=== PATIENT | female | born 1990 | race Caucasian/White ===

== ENCOUNTER 2025-04-24 15:38 | Emergency (ER) | payer MEDICAID, SELFPAY ==
--- OUTSIDE RECORDS SUMMARY | 2023-05-22 02:10 | XMS_ITS | Continuity of Care Document ---
Author Organization [facility] Address [address] [place] [address] Phone Care Team Providers Care Director Of Operations Name Role Phone Danyelle Chin PA-C Unavailable Unavailable Allergies, Adverse Reactions, Alerts Substance Reaction Status Criticality No Known Allergies Active No Inform ation Procedures Procedure Date Depression Negative Screen SBIRT Office/outpatient visit, est, exp prob A Collect venous blood, venipuncture Specimen handling/transport, office to l ab CBC (INCLUDES DIFF/PLT) BASIC METABOLIC PANEL Office/outpatient visit, est, detailed J Office Visit No Charge Depression Negative Screen SBIRT Collect venous blood, venipuncture Specimen handling/transport, office to l ab CBC (INCLUDES DIFF/PLT) COMPREHENSIVE METABOLICPANEL HIV 1/2 ANTIGEN/ANTIBODY,FOURTH GENERATI ON W/RFL TSH Office/outpatient visit, est, detailed J Office/outpatient visit, new, detailed J an Advance Directives Directive Yes / No Effective Date File Name No Information Encounters Encounter Description Practice Location Reason(s) For Visit Diagnoses Date Provider Providers Copied on [facility] [address], [place], [place], [id number] , [place] tel: [phone] [facility] No Information Giuseppe Bassett. [address] [place] [address], [id number] , [place], [place], [id number], [place]. tel:[phone] Office/outpa tient visit, est, exp prob [facility] , [address], [place], [place], [id number] , [place] tel: [phone] [facility] tonsillitis (chief complaint) Encounter for screening for depressionTonsi llitisCurrent smoker 2 Stephanie García. [address] [place] [address], [id number] , [place], [place], [id number], [place]. tel:[phone] [facility] , [address], [place], [place], [id number] , [place] tel: [phone] [facility] No Information 1 Kurt Casper. [address] [place] [address], [id number] , [place], [place], [id number], [place]. tel:[phone] [facility] , [address], [place], [place], [id number] , [place] tel: [phone] [facility] Disequilibrium syndrome 1 Javier Ramirez. [facility], [id number] , [place], [place], [id number], [place]. tel:[phone] Office/outpa tient visit, est, detailed [facility] , [address], [place], [place], [id number] , [place] tel: [phone] [facility] abnormal lab result (chief complaint) HypercalcemiaEl evated hemoglobin 1 Franchesca Regan. [address] [place] [address], [id number] , [place], [place], [id number], [place]. tel:[phone] [facility] , [address], [place], [place], [id number] , [place] tel: [phone] [facility] Encounter for dental exam and cleaning w/o abnormal findings 1 Quan Lilly. [address] [facility], [place], [place], [id number], [place]. tel:[phone] Office/outpa tient visit, est, detailed Miles Reyes , [address], [place], [place], [id number] , [place] tel: [phone] Miles Tran vertigo (chief complaint)IZ (chief complaint)lo w BP (chief complaint) Encounter for screening for other disorderEncount er for screening, unspecifiedVert igoScreening for HIV (human immunodeficienc y virus)Low blood pressure readingFamily history of melanomaFHx: ischemic heart disease 1 No Information Office/outpa tient visit, new, detailed [facility] , [address], [place], [place], [id number] , [place] tel: [phone] [facility] Vertigo (chief complaint) Vertigo 1 Sorensen Shereen. [address] [place] [address], [id number] [place], [place], [id number], [place]. tel:[phone] Family History Family Member Type Diagnosis Age At Onset Problem (finding) Family history of premature coronary heart disease 53 Problem (finding) Family history of hyper cholesterolemia Father Problem (finding) malignant melanoma Immunizations Vaccine Date Status Comments COVID-19 mRNA (PFR) administered Source: Other Registry COVID-19 mRNA (PFR) administered Source: Other Registry Payers Payer name Insurance type Covered constitution party ID Authoriza tion(s) No Information Social History Type Description Quantity Date Captured Comments Alcohol Use Details Unknown Caffeine Use Details Unknown Tobacco Use Status Smoking Status No Information Sex Female Chief Complaint And Reason For Visit No Information Reason For Referral Reason For Referral No Information Plan Of Treatment Date Type Action Status Goal Unhealthy drug use screening . Due on due Goal HPV. Due on due Goal Well Visit. Due on due Goal Tdap. Due on due Goal Pap/HPV testing. Due on due Goal Td vaccine. Due on due Goal Influenza vaccine. Due on due Goal Depression screening. Due on due Goal Hepatitis C screening. Due o n due Goal Diet and Activity Counseling . Due on due Goal Td vaccine. Due on due Goal Depression screening. Due on due Goal Well Visit. Due on due Goal Diet and Activity Counseling . Due on due Goal Pap/HPV testing. Due on due Goal Influenza vaccine. Due on due Goal Tdap. Due on due Goal Well Visit. Due on due Goal Tdap. Due on due Goal Diet and Activity Counseling . Due on due Goal Td vaccine. Due on due Goal Depression screening. Due on due Goal Influenza vaccine. Due on due Goal Tdap. Due on due Goal Influenza vaccine. Due on due Goal Well Visit. Due on due Goal Depression screening. Due on due Goal Td vaccine. Due on due Goal Diet and Activity Counseling . Due on due Goal Influenza vaccine. Due on due Goal Diet and Activity Counseling . Due on due Goal Td vaccine. Due on due Goal Tdap. Due on due Goal Depression screening. Due on due Goal Well Visit. Due on due Goal Lifestyle education regardin g diet completed Goal Diet and Activity Counseling . Due on due Goal Influenza vaccine. Due on due Goal Well Visit. Due on due Goal Depression screening. Due on due Goal Tdap. Due on due Goal Td vaccine. Due on due Referral Ordered: Referrals: Otolaryngology. Evaluate and treat ordered History Of Present Illness Encounter Date Complaint History Of Prese nt Illness tonsillitis tonsillitis 3 mo nths ago throat was bleeding, went to ED x 2 was not given ABX (Augmentin), tested negative for strep and culture same thing is happening again 2nd episode in three months covid neg at home no fever or chills fatigue and boy aches not taking any meds for thisno SOB sever difficulty swallowing smokes 5 cigs per day no CP, SOB, MARTIN, palpitations, fever or chills abnormal lab result The symptoms began 1 week ago and generally lasts varies. The symptoms are reported as being mild. The symptoms occur daily. The location is NA. Aggravating factors include nothing. Relieving factors include nothing. Associated symptoms include dizzness. Pertinent negatives include blood or parathyroid disorder. She states the symptoms are acute and are of new onset. Pt calling to discuss abnormal lab results, told her calcium and RBC high, supposed to come in today to get this rechecked, seen by provider last week for dizziness/vertigo. [place], has lived there for many years low BP She states the s ymptoms are chronic. occ dizzy after baths, eats salty foods, long standing. no LOC everFH melanoma, heart disease: 54 onset, no testing cholesterol, now smoking, last lab check years ago. vertigo (comments) using mucinex -D 12 hour but keeps her up at nightusing fluids, teas, youtube video canalith repositioning, meclizine from the summer episode IZ due for flu, Tda p and PPSV23; pt declined vertigo The problem is w orsening. It occurs daily. The patient describes it as (an) light-headed and swimming. Pertinent negatives include ear drainage, fever, headache, nausea, vision loss and vomiting. Additional information: was given prednisone and worked well, has sx after stopped taking it. pt reports this started during the summer but coming back now. pt reports its always in the evenings. Vertigo Onset was gradua l. Severity is 2. The duration of each episode is varies. The problem is acute. It occurs intermittently. The patient describes it as (an) light-headed. Symptom is aggravated by rapid rise. Denies relieving factors. Associated symptoms include ear drainage and headache. Pertinent negatives include chest pain, diplopia, fever, hearing loss, incoordination, loss of consciousness, nausea, neck stiffness, otalgia, palpitations, paresthesia, seizures, slurred speech, tinnitus, vision loss, vomiting and weakness. Additional information: Pt reports severe episode of vertigo this summer and was prescribed prednisone pt states never wants to take med states coming off of it felt like a withdrawal. Now having a lot of ear congestion and mild dizziness, would like to schedule appt in clinic for eval. Functional Status Date Functional Assessmen t No Information Instructions Date Instruction Additional Infor rell 05/23 Hgb 16.6 Hct 52 RBC 5.45 slightly above ULNSuspect this is due to living at very high elevationComing to clinic to recheck today Related to Elevated hemoglobin 05/23 calcium 10.4, c oming to clinic today to have this recheckedWill order PTH/ionized calcium if elevated Related to Hypercalcemia monitor skin, protec t skin from sunannual check with provider Related to Family history of melanoma discussed s/s low bl ood pressure of concernoffered eval EKG, echo, but advised current heart sounds normal; pt states long-standing, not getting worse. advised urgent eval if develops sx or worsening low BPlie down if any pre-syncopal sx in order not to fall and be hurtreviewed FH for premature ASCVD and melanoma: strong rec for no smoking, regular check for chol, weight, BPhealthy habits diet and exercise reviewed Related to Low blood pressure reading with serous OM noted no evidence for cardiac sourcerecommend continuing with Afrin at night, Mucinex D in AM. fluids, rest, prn meclizine (all of which she is continuing from previous)should pass as fluid resolves and pressure decreases on TMif not return to clinic for reeval, consider trial PT, ENT referral Related to Vertigo Call if this conditi on worsens or has not improved within 2 weeks Related to Vertigo Lifestyle education regarding di et Prescribed activity/exercise edu cation Quitting smoking will help Relat ed to Vertigo Vertigo is the feeli ng that you or your surroundings are moving when there is no actual movement. It is often described as a feeling of spinning, whirling, falling, or tilting. Vertigo may make you vomit or feel nauseated. You may have trouble standing or walking and may lose your balance.You may take Meclizine three times a day as needed for relief of symptomsDo not lie flat on your back. Prop yourself up slightly. This may reduce the spinning feeling. Keep your eyes open.Move slowly so that you do not fall.Do not drive while you are having vertigo.Certain exercises can help decrease vertigo, watch online videos to learn how to perform theseVertigo can last for several days or weeks and typically resolves on its ownAppt scheduled clinic for exam, eval Related to Vertigo Assessments Type Assessment Date No Information Patient Care Teams Name Effective Dates (start - stop) Status Members No Information
[2025-04-24 15:45] VITALS: BP 112/73; PULSE 78; RESP 14; TEMP 37.2; O2SAT 98; BMI 21.3
[2025-04-24 15:59] LABS: Appearance Urine Clear (Clear)
--- NOTE | 2025-04-24 16:29 | ED_ITS ---
HPI - General Adult General Date Seen: 04/24/25 Chief complaint: Urogenital Problems, Female Stated complaint: bladder infection or UTI? Time Seen by Provider: 04/24/25 15:54 History of Present Illness HPI narrative: Patient is a 35-year-old woman who presents with some dysuria, suprapubic discomfort and fatigue which started yesterday. She says the dysuria really is better today but she still feels fatigued. She has had a few urinary tract infections this year, she told the nurse she had had a fungal urinary tract infection but it sounds like she just had the show up in a UA and she was treated with fluconazole. She has had a couple of other UTIs that were bacterial. She has not been seen here before. She just moved here from [place] a couple of months ago. She leaving tomorrow to go back to [place] for the holidays, was concerned that she might have another urinary tract infection. She does deny any fevers flank pain vomiting or other systemic symptoms. She has an IUD, no suspicion of . Related Data Home Medications ?Medication ?Instructions ?Recorded ?Confirmed No Known Home Medications 04/24/2504/05 Allergies Allergy/AdvReac Type Severity Reaction Status Date / Time prednisone Allergy Unknown Verified 04/24/25 15:44 cyclobenzaprine (From Allergy Hives Verified 04/24/25 15:44 Flexeril) Review of Systems Status of ROS: Reports: 6 or more systems reviewed and unremarkable except as noted in History and below PFSH PFS Social History Smoking Status: Never smoker How often do you have a drink containing alcohol: never AUDIT-C Alcohol total score: 0 Non-prescribed substance use: denies use Exam Narrative: Exam Narrative: Vital signs reviewed In general, alert, nontoxic woman. Abdomen soft nontender Back: No CVA tenderness. Skin: Warm dry well perfused. Const: Vital Signs, click to edit/add: Vital Signs - 24 hr 04/24/25 15:45 Temperature 99.0 F Pulse Rate [Pulse Oximeter] 78 Respiratory Rate 14 Blood Pressure [Ri ght Upper Arm] 112/73 Pulse Oximetry 98 Oxygen Delivery Me thod Room Air Course Course ED Course: Urinalysis here is contaminated, moderate squames, 10-25 white blood cells. Few bacteria. I have discussed these results with her. I think it is possible that her symptoms represent UTI but also possible that this is simply a contaminated specimen. Given that she is getting on a plane tomorrow I have prescribed Macrobid for her. We discussed that it would not be unreasonable to give this 24 hours, push fluids, and see how she feels. Reviewed that if she does not get better despite treatment she should be seen again to look for alternate causes for her symptoms. Should be seen again at any time for worsening symptoms such as fever, severe abdominal pain, vomiting, flank pain etcetera. Vital Signs Vital signs: Initial Vital Signs Temperature 99.0 F 04/24/25 15:45 Temperature Source Temporal Artery Scan 04/24/25 15:45 Pulse Rate 78 04/24/25 15:45 Pulse Rhythm Regular 04/24/25 15:45 Respiratory Rate 14 04/24/25 15:45 Blood Pressure 112/73 04/24/25 15:45 Blood Pressure Mean 86 04/24/25 15:45 Blood Pressure Position Sitting 04/24/25 15:45 Pulse Oximetry 98 04/24/25 15:45 Oxygen Delivery Method Room Air 04/24/25 15:45 Vital Signs Temperature 99.0 F 04/24/25 15:45 Pulse Rate 78 04/24/25 15:45 Respiratory Rate 14 04/24/25 15:45 Blood Pressure 112/73 04/24/25 15:45 Pulse Oximetry 98 04/24/25 15:45 Oxygen Delivery Method Room Air 04/24/25 15:45 Temperature 99.0 F 04/24/25 15:45 Pulse Rate 78 04/24/25 15:45 Respiratory Rate 14 04/24/25 15:45 Blood Pressure 112/73 04/24/25 15:45 Pulse Oximetry 98 04/24/25 15:45 Oxygen Delivery Method Room Air 04/24/25 15:45 Medical Decision Making Lab Data Labs: Lab Results 04/24/25 Range/Units 15:52 Urine Color Yellow (Yellow) Urine Appearance Clear (Clear) Urine pH 7.0 (5.0-8.5) Ur Specific [place] 1.015 (1.000-1.030) Urine Protein Negative (Negative) Urine Glucose (UA) Negative (Negative) Urine Ketones Negative (Negative) Urine Blood Negative (Negative) Urine Nitrite Negative (Negative) Urine Bilirubin Negative (Negative) Urine Urobilinogen 0.2 (0.2-1.0) Ur Leukocyte Esterase Negative (Negative) Urine RBC 0-2 (0-2) Urine WBC 10-25 A (0-5) Ur Squamous Epith Cells Moderate A (None-Few) Urine Bacteria Few A (None) Discharge Plan Discharge Clinical Impression: Urinary tract infection Patient Disposition: Home, Self-Care Condition: Stable Instructions: Urinary Tract Infection in Women (DC) Additional Instructions: Take antibiotic as prescribed. If you feeling worse, have high fevers, vomiting, pain over 1 kidney or the other, return any time for re-evaluation. If you do not improve after treatment, see your primary doctor. Prescriptions: No Action No Known Home Medications Stand Alone Forms: [employer] Info Instructions
== END 2025-04-24 16:40 | disposition home or self-care (01) ==
LOC: ED 16:37
PROVIDERS: Emergency Provider Emergency Medicine
DX: N39.0 Urinary tract infection, site not specified (principal); Z87.440 Personal history of urinary (tract) infections
CPT/HCPCS: 81001; 87086; 99283; 99284